=== PATIENT | female | born 1950 | race Two or more races ===

== ENCOUNTER → 2016-07-17 | Outpatient (CLI) | payer OTHER, MEDICARE | LOC: FIMAGING 08:08 | DX: Z12.31 Encounter for screening mammogram for malignant neoplasm of breast (principal) | CPT/HCPCS: G0202 ==

== ENCOUNTER 2017-05-03 20:59 | Observation (INO) | payer OTHER, MEDICARE ==
[2017-05-03] MEDS ORDERED: HYDROmorphONE/DILAUDID 1 MG/ML INJ IVP ONE (21:39)
[2017-05-03] MEDS ORDERED: NS 1,000 ML IV ONE (21:39)
[2017-05-03] MEDS ORDERED: ONDANSETRON 4 MG/2 ML VIAL IVP ONE (21:39)
[2017-05-03 21:48] LABS: PLATELET COUNT 207 10^3/uL (150-400)
[2017-05-03] MEDS ORDERED: IOPAMIDOL (ISOVUE-300) 100 ML BTL ONE ×2 (22:31→22:44)
[2017-05-03] MEDS ORDERED: ERTAPENEM 1 GM VIAL IV ONE (23:13)
--- NOTE | 2017-05-03 23:13 | EDPHY ---
H & P Time Seen by Provider: 05/03/17 21:23 HPI/ROS: HPI Lower abdominal pain. 66-year-old female by private vehicle with her . This patient reports that Thursday evening she developed periumbilical pain described as aching and burning. She reports that over the next 2 days the pain migrated down into her right lower quadrant. It was worse today. She has had nausea. Denies vomiting. No diarrhea. No bloody or melenic stool. Last meal as well as oral fluid intake was 8:00 a.m. this morning. No prior abdominal surgical history. ROS: Constitutional: No fever, no chills. No weakness. Eyes: No discharge. No changes in vision. ENT: No sore throat. No nasal congestion or rhinorrhea. Respiratory: No cough. No shortness of breath. Cardiac: No chest pain, no palpitations. Gastrointestinal: As above, no vomiting, no diarrhea. Genitourinary: No hematuria. No dysuria or increased frequency with urination. Musculoskeletal: No back pain. No neck pain. No myalgias or arthralgias. Skin: No rashes. Neurological: No headache. No focal weakness or altered sensation. Past medical history: Chronic pain, insomnia, bulging disc. Social history: Nonsmoker. Drinks alcohol socially. Here with her . Physical Exam: General Appearance: Alert, no distress. This patient is responding to questions appropriately and in full sentences. This patient appears well- hydrated and well-nourished. Eyes: Pupils equal and round no pallor or injection. No lid edema, erythema or injection. Respiratory: There are no retractions, lungs are clear to auscultation with good air movement bilaterally. Cardiovascular: Regular rate and rhythm. No murmur. Gastrointestinal: Abdomen is soft with right lower quadrant tenderness on palpation and focal tenderness at McBurney's point with voluntary guarding. No masses, bowel sounds present. No focal tenderness at McBurney's point. No Armenta sign. Neurological: Motor sensory function is grossly intact. Cranial nerves are normal. Gait is normal. Skin: Warm and dry, no rashes. Musculoskeletal: Neck is supple and nontender. Extremities are symmetrical. All joints range without pain or impingement. Psychiatric: No agitation. No depression. Database: EKG: Imaging: CT scan of abdomen and pelvis with IV contrast: Significant for acute appendicitis. 13 mm dilated appendix with periappendiceal inflammatory changes. Results were discussed with staff radiologist Dr. William Fam. Procedures: Emergency department course: IV placed. She was placed on a diagnostic cardiac sonographer. Vital signs reviewed. She was started on IV normal saline with 1 L to be given over the next hour. She was initially given 0.5 mg of IV hydromorphone for pain and 4 mg of IV Zofran for nausea. These medicines will be repeated as needed. 11:05 p.m., discussed results of CT scan and diagnosis of acute appendicitis with the patient and her . Discussed need for operative management. All of their questions were answered. The patient has been NPO throughout her emergency department course. She will be given 1 g of IV Invanz in the emergency department. 11:15 p.m., spoke with on-call surgeon Dr. Bhargav Uriostegui. Case discussed in detail with him. He accepts this patient for admission. The patient's remaining emergency department course under my care has been uneventful. The patient was admitted under the care of Dr. Uriostegui in stable condition. Differential Diagnosis: The differential diagnosis on this patient includes but is not limited to acute appendicitis. Ovarian torsion, urinary tract infection, colitis, volvulus unlikely. This represents a partial list of diagnoses considered. These considerations are based on history, physical exam, past history, reassessment and diagnostic testing. Smoking Status: Never smoked Constitutional: Initial Vital Signs Temperature (C) 36.7 C 05/03/17 21:04 Heart Rate 70 05/03/17 21:04 Respiratory Rate 16 05/03/17 21:04 Blood Pressure 153/98 H 05/03/17 21:04 O2 Sat (%) 95 05/03/17 21:04 O2 Delivery Mode Room Air Allergies/Adverse Reactions: No Known Allergies Allergy (Verified 05/03/17 21:09) Home Medications: Medication Instructions Recorded traZODone [traZODONE 50MG (*)] 25 mg PO HS 01/22/16 Glucosamine/Chondroitin 1 each PO DAILY 03/04/16 [Glucosamine/Chondroitin (*)] Herbals/Supplements -Info Only 1 ea PO DAILY 03/04/16 Multivitamins [Multivitamin (*)] 1 each PO DAILY 03/04/16 [place]-3 Fatty Acids [Fish Oil 1000 1,000 mg PO DAILY 12/13/16 mg (*)] Acetaminophen [Tylenol 325mg (*)] 650 mg PO Q6HRS PRN #0 tab 03/05/16 Estrogel 05/03/17 Medical Decision Making - Diagnostics Imaging Results: Imaging Impressions Abdomen CT 05/03/17 21:40 Impression: CT findings for appendicitis as above. Results called and discussed with Ariella Johnson MD at 05/03/2017 23:06. - Data Points Laboratory Results: Laboratory Results 05/03/17 21:35 05/03/17 21:35 05/03/17 05/03/17 05/03/17 21:45 21:35 21:35 WBC 5.95 10^3/uL 10^3/uL (3.80-9.50) RBC 4.68 10^6/uL 10^6/uL (4.18-5.33) Hgb 14.8 g/dL g/dL (12.6-16.3) Hct 42.9 % % (38.0-47.0) MCV 91.7 fL fL (81.5-99.8) MCH 31.6 pg pg (27.9-34.1) MCHC 34.5 g/dL g/dL (32.4-36.7) RDW 12.3 % % (11.5-15.2) Plt Count 207 10^3/uL 10^3/uL (150-400) MPV 9.3 fL fL (8.7-11.7) Neut % (Auto) 52.6 % % (39.3-74.2) Lymph % (Auto) 37.5 % % (15.0-45.0) [place] % (Auto) 8.6 % % (4.5-13.0) Eos % (Auto) 0.7 % % (0.6-7.6) Baso % (Auto) 0.3 % % (0.3-1.7) Nucleat RBC Rel Count 0.0 % % (0.0-0.2) Absolute Neuts (auto) 3.13 10^3/uL 10^3/uL (1.70-6.50) Absolute Lymphs (auto) 2.23 10^3/uL 10^3/uL (1.00-3.00) Absolute Monos (auto) 0.51 10^3/uL 10^3/uL (0.30-0.80) Absolute Eos (auto) 0.04 10^3/uL 10^3/uL (0.03-0.40) Absolute Basos (auto) 0.02 10^3/uL 10^3/uL (0.02-0.10) Absolute Nucleated RBC 0.00 10^3/uL 10^3/uL (0-0.01) Immature Gran % 0.3 % % (0.0-1.1) Immature Gran # 0.02 10^3/uL 10^3/uL (0.00-0.10) Sodium 139 mEq/L mEq/L (135-145) Potassium 3.9 mEq/L mEq/L (3.5-5.2) Chloride 102 mEq/L mEq/L (97-110) Carbon Dioxide 23 mEq/l mEq/l (22-31) Anion Gap 14 mEq/L mEq/L (8-16) BUN 10 mg/dL mg/dL (7-23) Creatinine 0.6 mg/dL mg/dL (0.6-1.0) Estimated GFR > 60 Glucose 87 mg/dL mg/dL (70-100) Calcium 9.7 mg/dL mg/dL (8.5-10.4) Total Bilirubin 0.7 mg/dL mg/dL (0.1-1.4) Conjugated Bilirubin 0.2 mg/dL mg/dL (0.0-0.5) Unconjugated Bilirubin 0.5 mg/dL mg/dL (0.0-1.1) AST 25 IU/L IU/L (14-46) ALT 40 IU/L IU/L (9-52) Alkaline Phosphatase 120 IU/L IU/L (38-126) Total Protein 7.1 g/dL g/dL (6.3-8.2) Albumin 4.3 g/dL g/dL (3.5-5.0) Lipase 73 IU/L IU/L (23-300) Urine Color YELLOW Urine Appearance CLEAR Urine pH 6.0 (5.0-7.5) Ur Specific [place] 1.016 (1.002-1.030) Urine Protein NEGATIVE (NEGATIVE) Urine Ketones 1+ H (NEGATIVE) Urine Blood NEGATIVE (NEGATIVE) Urine Nitrate NEGATIVE (NEGATIVE) Urine Bilirubin NEGATIVE (NEGATIVE) Urine Urobilinogen NEGATIVE EU EU (0.2-1.0) Ur Leukocyte Esterase NEGATIVE (NEGATIVE) Urine RBC 1-3 /hpf /hpf (0-3) Urine WBC 1-3 /hpf /hpf (0-3) Ur Epithelial Cells TRACE /lpf /lpf (NONE-1+) Urine Mucus TRACE /lpf /lpf (NONE-1+) Urine Glucose NEGATIVE (NEGATIVE) Medications Given: Discontinued Medications Hydromorphone HCl (Dilaudid) 0.5 mg IVP EDNOW ONE Stop: 05/03/17 21:40 Last Admin: 05/03/17 21:54 Dose: 0.5 mg Sodium Chloride (Ns) 1,000 mls @ 0 mls/hr IV EDNOW ONE; Wide Open PRN Reason: Protocol Stop: 05/03/17 21:40 Last Admin: 05/03/17 21:54 Dose: 1,000 mls Ondansetron HCl (Zofran) 4 mg IVP EDNOW ONE Stop: 05/03/17 21:40 Last Admin: 05/03/17 21:54 Dose: 4 mg Departure - Departure Disposition: [facility] Inpatient Acute Clinical Impression: Acute appendicitis Referrals: Angela López MD [Primary Care Provider] - As per Instructions
[2017-05-04] MEDS ORDERED: HYDROmorphONE/DILAUDID 1 MG/ML INJ IVP PRN (01:28)
[2017-05-04] MEDS ORDERED: ONDANSETRON 4 MG/2 ML VIAL IVP PRN (01:28)
[2017-05-04] MEDS ORDERED: LR 1,000 ML IV SCH (01:30)
[2017-05-04] MEDS ORDERED: HEPARIN 5,000 UNIT/0.5 ML SYR ONE (01:36)
[2017-05-04] MEDS ORDERED: ceFAZolin 1 GM/5 ML SYR ONE (01:37)
--- NOTE | 2017-05-04 01:41 | GHP ---
[f rep st] PREOP HISTORY AND PHYSICAL DATE OF ADMISSION: 05/03/2017 ADMISSION DIAGNOSIS: Acute appendicitis. HISTORY OF PRESENT ILLNESS: The patient is a 66-year-old female, who had the onset of a generalized stomachache at noon on Thursday. She lost her appetite and did not eat that evening. She slept poorly and did try both Tums and Pepto- Bismol without effect. The next morning, she woke up and found that she had nausea and the pain had switched to the right lower quadrant. It was now stabbing. She was able to eat part of a grilled cheese sandwich and soup that day. She took Excedrin and Advil to no effect. She slept poorly on Thursday night. This morning, the dull pain progressed to a sharp pain. She did move her bowels yesterday and today. There is no history of recent upper respiratory tract infection or diarrhea. There are no prior similar symptoms. Her only abdominal surgery has been a tubal ligation. There is no history of antibiotic use or travel outside the [place]. FAMILY HISTORY: There is no family history or personal history of inflammatory bowel disease. SOCIAL HISTORY: She does not smoke. She drinks 1-2 glasses of wine 3 nights per week. ALLERGIES: She has no known drug allergies. MEDICATIONS: She takes trazodone. She takes Advil PM or Excedrin for back issues. She takes a multivitamin, glucosamine, flaxseed, vitamin C, vitamin E, fish oil, calcium, as well as an estrogen patch. PAST SURGICAL HISTORY: As mentioned above, her only prior surgery has been a tubal ligation. There is no history of rheumatic fever, tuberculosis, hepatitis , and transfusions. REVIEW OF SYSTEMS: She wears lenses for reading. She has dental implants and a bridge. She does have stress incontinence. There are no limits on her activities. No history of steroid use. REVIEW OF SYSTEMS: Otherwise quite negative. PHYSICAL EXAMINATION: GENERAL: She is awake and alert. Her skull is normocephalic and atraumatic. She is oriented to person, place, and time. There is no cervical, supraclavicular, axillary or inguinal lymphadenopathy. Thyroid is not enlarged. LUNGS: Clear to auscultation. BACK: Unremarkable. CARDIAC: Shows S1, S2 to be normal. She has a negative obturator and a plus- minus psoas sign. ABDOMEN: Bowel sounds are distinctly hypoactive. With cough, she is tender over McBurney's point. It is 6 on a scale of 1-10. To palpation, left upper quadrant is 1, left mid abdomen is 3, left lower quadrant is 3, epigastrium is 4 , periumbilical area is 6, suprapubic is 6, right upper quadrant is 6, right mid abdomen is 8, right lower quadrant is 8, over the iliac crest is 6. LABORATORY DATA: Her CT scan shows dilated appendix with some periappendiceal stranding and hyperemia of the appendiceal wall without fluid in the pelvis. Her white blood count is 5.9 with 52% neutrophils. Hematocrit is 42, platelet count is 207. Her creatinine is 0.6. Her BUN is 10. Laboratories otherwise unremarkable. Urinalysis shows specific gravity 1.016. IMPRESSION AND PLAN: This patient has acute appendicitis that has not ruptured yet. She has received Invanz. We have talked about other alternatives including antibiotics only, but given her abdominal discomfort and CT findings, I think it is more appropriate to proceed surgically at this time in spite of the relatively normal white blood cell count. The patient and are in agreement. Surgery will be set up directly. /[id number]/MODL MTDD
[2017-05-04] MEDS ORDERED: fentaNYL 100 MCG/2 ML INJ ONE ×4 (01:45→04:21)
[2017-05-04] MEDS ORDERED: PROPOFOL 200 MG/20 ML VIAL ONE (01:45)
[2017-05-04] MEDS ORDERED: ROCURONIUM 50 MG/5 ML VIAL ONE (01:48)
[2017-05-04] MEDS ORDERED: LIDOCAINE 2% 5 ML SDV ONE (01:48)
--- NOTE | 2017-05-04 02:12 | PDANEPAE ---
ANE History of Present Illness Patient presents for lap appy WILL Past Medical History - Pulmonary History Hx Oxygen in Use at Home: No Hx Sleep Apnea: No Sleep Apnea Screening Result - Last Documented: Negative - Endocrine History Hx Diabetes: No - Chronic Pain History Chronic Pain: Yes ANE Review of Systems Review of Systems: ANE Patient History - Allergies Allergies/Adverse Reactions: No Known Allergies Allergy (Verified 05/03/17 21:09) - Home Medications Home medications: home medication list seen and reviewed Home Medications: traZODone [traZODONE 50MG (*)] 25 mg PO HS 01/22/16 [Last Taken 03/03/16] Glucosamine/Chondroitin [Glucosamine/Chondroitin (*)] 1 each PO DAILY 03/04/16 [ Last Taken Unknown] Herbals/Supplements -Info Only 1 ea PO DAILY 03/04/16 [Last Taken Unknown] Multivitamins [Multivitamin (*)] 1 each PO DAILY 03/04/16 [Last Taken Unknown] [place]-3 Fatty Acids [Fish Oil 1000 mg (*)] 1,000 mg PO DAILY 03/04/16 [Last Taken Unknown] Estrogel 05/03/17 [Last Taken Unknown] - NPO status NPO Status: no food or drink >8 hours NPO Since - Liquids (Date): 05/03/17 NPO Since - Liquids (Time): 08:00 NPO Since - Solids (Date): 05/03/17 NPO Since - Solids (Time): 08:00 - Anes Hx Anes Hx: no prior problems - Smoking Hx Smoking Status: Never smoked ANE Labs/Vital Signs - Labs Result Diagrams: 05/03/17 21:35 05/03/17 21:35 - Vital Signs Vital Signs: reviewed preoperatively; see RN documention for details Blood Pressure: 134/85 Heart Rate: 80 Respiratory Rate: 16 O2 Sat (%): 96 Weight: 59.874 kg ANE Physical Exam - Airway Neck exam: FROM Mallampati Score: Class 2 Mouth exam: normal dental/mouth exam - Pulmonary Pulmonary: no respiratory distress - Cardiovascular Cardiovascular: regular rate and rhythym - ASA Status ASA Status: II, E ANE Anesthesia Plan Anesthesia Plan: general endotracheal anesthesia (RBA discussed)
[2017-05-04] MEDS ORDERED: DEXAMETHASONE 4 MG/ML VIAL ONE (02:36)
[2017-05-04] MEDS ORDERED: ONDANSETRON 4 MG/2 ML VIAL ONE ×2 (02:37→04:31)
[2017-05-04] MEDS ORDERED: LR 500 ML IV PRN (03:18)
[2017-05-04] MEDS ORDERED: HYDROCODONE/APAP 5/325 TAB PO PRN (03:18)
[2017-05-04] MEDS ORDERED: NALOXONE HCL 0.4 MG/ML INJ IVP PRN (03:18)
[2017-05-04] MEDS ORDERED: SUGAMMADEX SODIUM 200 MG/2 ML VIAL IVP ONE (03:28)
--- NOTE | 2017-05-04 03:54 | POSTOPPROG ---
Post Op Note Date of Operation: 05/04/17 Surgeon: Alfonzo Uriostegui Anesthesia: GET(General Endotracheal) Pre-op Diagnosis: acute appendicitis Post-op Diagnosis: acute appendicitis with small meckel's diverticulum Indication: acute appendicitis Procedure: laparoscopic appendectomy Findings: acute appendicitis with small meckel's diverticulum Inf/Abcess present in the surg proc area at time of surgery?: No EBL: 50-100 Total fluids administered: 800 Complications: none Specimen(s): appendix
--- NOTE | 2017-05-04 03:55 | POSTANESTH ---
Post Anesthetic Evaluation Cardiovascular Status: Similar to Pre-Op Cond Respiratory Status: Similar to Pre-op Cond. Level of Consciousness/Mental Status: Can Participate in Eval Pain Control: Adequate, Prn Tx Ordered Nausea/Vomiting Control: Adequate, Prn Tx Ordered Complications Possibly Related to Anesthesia: None Noted
[2017-05-04] MEDS: fentaNYL 100 MCG/2 ML INJ IVP PRN ×4 (04:01→04:38)
--- NOTE | 2017-05-04 04:16 | GOP ---
[f rep st] OPERATIVE REPORT DATE OF OPERATION: 05/04/2017 SURGEON: Alfonzo Uriostegui MD ANESTHESIA: General endotracheal. PREOPERATIVE DIAGNOSIS: Acute appendicitis. POSTOPERATIVE DIAGNOSIS: Acute appendicitis with small (1 x 1 cm) Meckel's diverticulum. PROCEDURE PERFORMED: Laparoscopic appendectomy. FINDINGS: Same. ESTIMATED BLOOD LOSS: 25-50 cc. INDICATIONS: Acute appendicitis. DESCRIPTION OF PROCEDURE: The patient is placed on the operating table in supine position. After induction of adequate general endotracheal anesthesia ( which was difficult due to her small airway) the patient was carefully clipped, prepped, and draped. A surgical time-out was carried out and agreed to by all members of the operative team. A curvilinear incision was planned at the umbilicus. A transverse suprapubic incision and an oblique left lower quadrant incision that were also planned. Skin is incised at each site. It is deepened at the infraumbilical area to the anterior rectus sheath which was elevated between 2 Allis clamps. The fascia was divided in the midline. The fascia was secured with a pursestring #0 PDS. The peritoneum is entered safely. An 11-12 mm Kamilah trocar was positioned. Intra-abdominal insufflation was carried out to 15 mmHg. The patient was placed in Trendelenburg position. A 5 mm left lower quadrant port was placed as is a suprapubic port. The bladder has some fluid in it but it does not impede the procedure. There is no free fluid in the pelvis. The patient is now rotated 5 degrees to the left. The appendix is adherent to adjacent structures and is carefully dissected free using a Harmonic scalpel. There is 1 bleeding mesoappendix vessel which I finally was able to elevate with a right angle clamp and used the Harmonic to control just proximal to the clamp. Once the appendix was cleared down to its base, a powered 35 mm Endo- ALISON stapler was placed across it, and fired. The specimen was removed in an EndoCatch bag. Heparin and Ancef containing irrigant were used throughout the procedure. The small bowel was now run for a distance of 3 feet. A Meckel's diverticulum measuring approximately 1 x 1 cm was identified. Given its size I do not feel this will constitute a hazard for the patient so it is not resected. Hemostasis again checked and found to be excellent. The ports were removed under direct vision. An inverted simple suture #0 PDS was placed at the midpoint of the infraumbilical midline fascial defect and tied. The pursestring is now tied. Hemostasis was checked and found to be excellent at the umbilicus. Inverted simple sutures of #4-0 Vicryl were placed at all incisions. Mastisol and Steri-Strips were used. Band-Aids were positioned. The patient was transferred to recovery in stable and satisfactory condition. FLUIDS ADMINISTERED: 850. /[id number]/MODL MTDD
[2017-05-04] MEDS ORDERED: OXYCODONE/APAP 5/325 TAB ONE ×2 (04:22→04:49)
[2017-05-04] MEDS: OXYCODONE/APAP 5/325 TAB PO PRN ×2 (04:28→04:50)
[2017-05-04] MEDS: KETOROLAC 15 MG/1 ML SDV IVP SCH ×2 (05:34→12:03)
[2017-05-04] MEDS: ACETAMINOPHEN 500 MG TAB PO SCH ×2 (05:35→13:30)
[2017-05-04 05:58] VITALS: O2SAT 96
[2017-05-04 10:10] VITALS: RESP 16
--- NOTE | 2017-05-04 12:31 | SOAPPROG ---
SOAP Progress Note Assessment/Plan: 05/04/17 12:28 POD#1 Assessment: Doing well, pain controlled, eating, passing flatus Plan: Home today, after tolerates diet and activity Subjective: no complaints, did not sleep well last night Objective: Vital Signs Temp Pulse Resp BP Pulse Ox 36.3 C 88 16 106/72 96 05/04/17 08:25 05/04/17 08:25 05/04/17 08:25 05/04/17 08:25 05/04/17 08:25 05/03/17 05/04/17 05/05/17 05:59 05:59 05:59 Intake Total 2200 Output Total 25 Balance 2175 - Time Spent With Patient Time Spent With Patient: 15 Physical Exam - Physical Exam General Appearance: WD/WN, alert, no apparent distress Neck: non-tender, full range of motion, supple Respiratory: chest non-tender, lungs clear, normal breath sounds Cardiac/Chest: normal peripheral pulses, regular rate, rhythm Abdomen: normal bowel sounds, non-tender, soft, other (incisions clean and dry) Pelvic Exam: deferred Rectal: deferred Back: Normal inspection Skin: normal color, warm/dry Extremities: normal range of motion Neuro/Psych: no motor/sensory deficits, alert, normal mood/affect, oriented x 3 ICD10 Worksheet Patient Problems: Problems Problem Status Onset Acute appendicitis Acute Chest pain Acute
--- NOTE | 2017-05-04 13:28 | GDS ---
[f rep st] DISCHARGE SUMMARY DISCHARGE DIAGNOSIS: Acute unruptured appendicitis with incidental Meckel diverticulum (1 cm x 1 cm). CONDITION ON DISCHARGE: Improved. DISPOSITION: Home. DIET: Unrestricted, although I recommend she avoid constipating foods, such as bananas, rice, applesauce, and cheese. Texture of her diet is regular. DISCHARGE MEDICATIONS: Include, for pain control, Tylenol 1000 mg every 8 hours , Toradol 10 mg every 6 hours, Dilaudid 2 mg every 4 hours p.r.n. breakthrough pain. She will continue her trazodone 25 mg p.o. q.h.s., omega-3 fatty acids 1000 mg daily, multivitamin daily, herbal supplement daily, and her glucosamine and chondroitin sulfate daily. ACTIVITY RESTRICTIONS: For 3 weeks, she is to shower only, keep Steri-Strips in place, and lift less than 10 pounds. She is to take a multivitamin with zinc , copper, and C daily. She is not to sit for more than 1 hour at a time. If she is riding in a car (and she will be), she is to get out in a safe place and walk around the car 3 times every hour. She is to watch for signs of infection , which would be redness, warmth, tenderness, and swelling at the skin level or deep space infection, manifested by fevers, chills, abdominal pain, loss of appetite, and malaise. She will follow up with Dr. Raphael Garcia's office in 2 weeks. She will follow up with her Primary Care Provider as needed. She will be discharged this afternoon after she tolerates a regular diet and activity. /[id number]/MODL MTDD
[2017-05-04 16:31] VITALS: BP 110/74; PULSE 86; TEMP 97.7
== END 2017-05-04 16:10 | disposition home or self-care (01) ==
LOC: FOB 05-04 00:16
PROVIDERS: ADMIT Surgery; ATTEND Surgery
PROC: 0DTJ4ZZ Resection of Appendix, Percutaneous Endoscopic Approach (ICD-10-PCS; principal; 2017-05-03)
DX: K35.89 Other acute appendicitis (principal); Q43.0 Meckel's diverticulum (displaced) (hypertrophic)
CPT/HCPCS: 44970; 74177; 88304; J0690; J1100; J1170; J1335; J1644; J1885; J2405; J2704; J3010; Q9967; 96374

== ENCOUNTER → 2017-07-20 | Outpatient (CLI) | payer OTHER, MEDICARE | LOC: FIMAGING 11:30 | PROVIDERS: ATTEND Internal Medicine | DX: Z12.31 Encounter for screening mammogram for malignant neoplasm of breast (principal) ==

== ENCOUNTER → 2018-07-07 | Outpatient (CLI) | payer OTHER, MEDICARE | LOC: FIMAGING 08:58 | PROVIDERS: ATTEND Internal Medicine | DX: Z12.31 Encounter for screening mammogram for malignant neoplasm of breast (principal); Z13.820 Encounter for screening for osteoporosis; M85.89 Other specified disorders of bone density and structure, multiple sites; Z78.0 Asymptomatic menopausal state ==